=== PATIENT | male | born 1940 | race Caucasian/White ===

== ENCOUNTER → 2019-12-05 | Outpatient (CLI) | payer BC ==
[~2019-12-05] MED LIST: VISIPAQUE 320 MG/ML, 150ML BOTTLE ONE
== END | disposition home or self-care (01) ==
LOC: CVU 11:49
PROVIDERS: ATTEND Internal Medicine Interventional Cardiology
DX: Z01.810 Encounter for preprocedural cardiovascular examination (principal); K57.30 Diverticulosis of large intestine without perforation or abscess without bleeding
CPT/HCPCS: 36415; 71275; 74174; 82565; 93880; 94010; 94726; 94729; Q9967

== ENCOUNTER → 2020-02-06 | Outpatient (CLI) | payer BC, MEDICARE ==
[~2020-02-06] MED LIST changes: +ACET325T26 PO; +DILT120C64 PO; +IBUP-1623 PO; +LISI-170 PO; +MELA10CA PO; +OMEP-110 PO; +POTA10CA PO; +TAMS-11 PO; -VISIPAQUE 320 MG/ML, 150ML BOTTLE ONE; +WARF-36 PO
== END | disposition home or self-care (01) ==
LOC: CVU 08:55
PROVIDERS: ATTEND Internal Medicine Cardiovascular Disease
DX: I08.8 Other rheumatic multiple valve diseases (principal); R06.02 Shortness of breath; I65.29 Occlusion and stenosis of unspecified carotid artery; I48.91 Unspecified atrial fibrillation
CPT/HCPCS: 93306